=== PATIENT | female | born 1935 | race African-American/Black ===

== ENCOUNTER 2017-04-05 05:07 | Emergency (ER) | payer BC, MEDICARE ==
[2017-04-05] MEDS ORDERED: Metoclopramide HCl 10 MG/2 ML VIAL ONE (06:24)
[2017-04-05 06:34] LABS: #Eosinphils 0.2 thou/uL (0.0-0.7); #Monocytes 0.5 thou/uL (0.11-0.59); #Neutrophils 5.9 thou/uL (1.40-6.50); %Basophils 0.4 % (0.0-1.0); %Eosinophils 1.9 % (0.0-10.0); %Lymphocytes 23.5 % (21.0-51.0); %Monocytes 5.5 % (0.0-10.0); Hematocrit 36.6 % (36.0-47.0); Mean Platelet Volume 8.5 fL (7.4-10.4); Red Blood Cell (RBC) Count 4.09 mill/uL (4.20-5.40); White Blood Cell (WBC) Count 8.5 thou/uL (4.8-10.8)
[2017-04-05 06:59] LABS: ALT (SGPT) 22 U/L (8-55); AST (SGOT) 20 U/L (5-34); Alkaline Phosphatase 104 U/L (40-150); Anion Gap 9 mmol/L (10-20); BUN (Urea Nitrogen) 25 mg/dL (9.8-20.1); Bilirubin, Total 0.3 mg/dL (0.2-1.2); Calc. Creatinine Clearance 0 mL/min (70-130); Calcium 9.1 mg/dL (7.8-10.44); Carbon Dioxide 28 mmol/L (23-31); Chloride 109 mmol/L (98-107); Estimated GFR-MDRD 66; Globulin 3.5 g/dL (2.4-3.5)
--- NOTE | 2017-04-05 07:58 | CT ---
PRELIMINARY REPORT/[facility]/EMERGENCY AFTER HOURS PROCEDURE: EXAM: CT Head Without Intravenous Contrast CLINICAL HISTORY: 81 years old, female; Pain; Headache; Headache not specified; Patient HX: JUNIOR TECHNIQUE: Axial computed tomography images of the head/brain without intravenous contrast. COMPARISON: No relevant prior studies available. FINDINGS: Brain: Some streak artifact. Minimal periventricular white matter hypodensity most commonly associat ed with chronic microvascular ischemic change. No hemorrhage. Ventricles: Normal. Bones/joints: Unremarkable. No acute fracture. Soft tissues: Normal. Sinuses: Unremarkable. Mastoid air cells: Unremarkable. No mastoid effusion. IMPRESSION: No acute findings. Thank you for allowing us to participate in the care of your patient. Dictated and Authenticated by: Steve Mccoy MD 04/05/2017 6:21 AM Central Time ([place] \T\ [place]) FINAL REPORT HEAD CT WITHOUT CONTRAST: Date: 04/05/17 COMPARISON: 04/25/16. HISTORY: Hypertension, headache. FINDINGS: I agree with the preliminary report given by Vidal. Imaged paranasal sinuses/mastoid air cells are we ll aerated, no displaced calvarial fracture is noted, and there is no intracranial hemorrhage, midli ne shift, or mass effect. IMPRESSION: No intracranial hemorrhage seen. POS: [facility]
--- NOTE | 2017-04-09 20:11 | EKG ---
Test Reason : HTN Blood Pressure : / mmHG Vent. Rate : 065 BPM Atrial Rate : 065 BPM P-R Int : 160 ms QRS Dur : 092 ms QT Int : 418 ms P-R-T Axes : 064 -57 049 degrees QTc Int : 434 ms Sinus rhythm with sinus arrhythmia with occasional Premature ventricular complexes Left anterior fascicular block Abnormal ECG Confirmed by GLO ASHRAF D.O. ([id number]), features editor ANTHONY MERCEDES ([id number]) on 04/09/2017 8:11:30 PM Referred By: Confirmed By:GLO ASHRAF D.O.
== END 2017-04-05 07:52 | disposition home or self-care (01) ==
LOC: ERS 05:07
DX: G43.909 Migraine, unspecified, not intractable, without status migrainosus (principal); E78.5 Hyperlipidemia, unspecified; I10 Essential (primary) hypertension; Z79.82 Long term (current) use of aspirin; Z79.899 Other long term (current) drug therapy
CPT/HCPCS: 36415; 70450; 80053; 85025; 93005; 96365; J2765

== ENCOUNTER 2017-04-07 04:31 | Inpatient (IN) | payer MEDICARE, BC ==
[2017-04-07 05:14] LABS: #Eosinphils 0.2 thou/uL (0.0-0.7); #Lymphocytes 2.8 thou/uL (1.20-3.40); #Monocytes 0.4 thou/uL (0.11-0.59); #Neutrophils 4.1 thou/uL (1.40-6.50); %Basophils 0.6 % (0.0-1.0); %Eosinophils 3.1 % (0.0-10.0); %Lymphocytes 37.3 % (21.0-51.0); %Monocytes 4.7 % (0.0-10.0); Red Blood Cell (RBC) Count 3.58 mill/uL (4.20-5.40); White Blood Cell (WBC) Count 7.5 thou/uL (4.8-10.8)
[2017-04-07 05:31] LABS: ALT (SGPT) 23 U/L (8-55); AST (SGOT) 21 U/L (5-34); Alkaline Phosphatase 94 U/L (40-150); Anion Gap 13 mmol/L (10-20); BUN (Urea Nitrogen) 21 mg/dL (9.8-20.1); Bilirubin, Total 0.3 mg/dL (0.2-1.2); Calc. Creatinine Clearance 0 mL/min (70-130); Calcium 8.5 mg/dL (7.8-10.44); Carbon Dioxide 24 mmol/L (23-31); Chloride 108 mmol/L (98-107); Estimated GFR-MDRD 63; Protein, Total 6.2 g/dL (6.0-8.3)
[2017-04-07 05:35] LABS: Troponin I Less than 0.010 ng/mL (< 0.028)
[2017-04-07] MEDS ORDERED: Nitroglycerin 2% Ointment 1 INCH/1 GM Packet TOP SCH (06:00)
[2017-04-07] MEDS ORDERED: Nitroglycerin 2% Ointment 1 INCH/1 GM Packet ONE (06:02)
[2017-04-07] MEDS ORDERED: Mag-Al 1200 mg/1200 mg/30 ML UDCUP PO PRN (06:37)
[2017-04-07] MEDS ORDERED: Ondansetron HCl/PF 4 MG/2 ML Vial IVP PRN (06:37)
--- NOTE | 2017-04-07 06:50 | HP ---
DATE OF ADMISSION: 04/07/2017 ADMITTING PHYSICIAN: Dr. Lawson Weaver PRIMARY CARE PHYSICIAN: Dr. Keith CHIEF COMPLAINT: Chest pain. HISTORY OF PRESENT ILLNESS: The patient is a 81-year-old female with multiple risk factors includin g hypertension and diabetes. She is followed by the security business analyst, Dr. Keith. The patient was actual ly seen not too long ago in clinic and started on isosorbide dinitrate. The patient reports that st arting yesterday she began to experience fatigue and chest pressure and pain when walking as little as 5-10 feet in her home. She tried to lay down to see if that would relieve the symptoms and the s ymptoms did not recede. The patient denies nausea, vomiting and diaphoresis. She was recently seen in the ED for a migraine which has resolved. No other review of systems positive at this time. REVIEW OF SYSTEMS: The following complete review of systems was negative, unless otherwise mentioned in the HPI or below: Constitutional: Weight loss or gain, ability to conduct usual activities. Skin: Rash, itching. Eyes: Double vision, pain. ENT/Mouth: Nose bleeding, neck stiffness, pain, tenderness. Cardiovascular: Palpitations, dyspnea on exertion, orthopnea. Respiratory: Shortness of breath, wheezing, cough, hemoptysis, fever or night sweats. Gastrointestinal: Poor appetite, abdominal pain, heartburn, nausea, vomiting, constipation, or diarrhea. Genitourinary: Urgency, frequency, dysuria, nocturia. Musculoskeletal: Pain, swelling. Neurologic/Psychiatric: Anxiety, depression. Allergy/Immunologic: Skin rash, bleeding tendency. PAST MEDICAL HISTORY: Significant for hypertension, migraine headaches, dyslipidemia, and cervicalg ia. PAST SURGICAL HISTORY: Positive for a hysterectomy, partial thyroidectomy, angiogram 12/2012, spina l surgery. PSYCHIATRIC HISTORY: Negative. SOCIAL HISTORY: Negative for alcohol use, drug use or smoking abuse. FAMILY HISTORY: Reviewed and noncontributory. HOME MEDICATIONS: Amlodipine 5 mg every day, carvedilol 12.5 mg b.i.d., aspirin 81 mg every day, po tassium chloride 20 mEq every day, Lyrica 25 mg daily, lisinopril 10 mg b.i.d., Flexeril 10 mg t.i.d ., Isosorbide 30 mg every day, Fioricet 1 tab q.4h., and clonidine 0.2 mg b.i.d. ALLERGIES: Positive for ACETAMINOPHEN, LATEX, NATURAL RUBBER. PHYSICAL EXAMINATION: VITAL SIGNS: Temperature 98.1, pulse 47, blood pressure 130/53, respirations 20, O2 sat 95% on room air. GENERAL: She is calm, nontoxic, cooperative. HEAD: Normocephalic, atraumatic. EYES: PERRL. Extraocular muscles are intact. ENT: External ear normal, pharynx exam normal, tonsil exam normal, mouth exam normal. Mucous membr anes moist. NECK: Full range of motion. Trachea midline. Supple. RESPIRATORY: Clear to auscultation bilaterally, no rhonchi, no wheezing. CARDIAC: Regular rate and rhythm. Normal S1, S2. ABDOMEN: Obese, nontender, positive bowel sounds. EXTREMITIES: No clubbing, cyanosis or edema. NEUROLOGIC: No focal deficits. Cranial nerves II-XII are grossly intact. She is alert and oriente d x3. LABORATORY/ IMAGES: The patient has had a nuclear medicine stress test 08/2016 which showed an EF o f 78% and no reversible ischemia areas. CBC today shows a white count of 7.5, hemoglobin 10.1, hematocrit 32.0, platelets 181. CMP: Sodium 141, potassium 3.9, chloride 108, carbon dioxide 24, BUN 21, creatinine 1.03, glucose 115, albumin 3.2, AST 21, ALT 23, troponin I less than 0.01. CK-MB 2.4. ASSESSMENT AND PLAN: 1. Chest pain. 2. Hypertension. 3. Diabetes. The patient will be admitted to telemetry obs. We will continue to get serial enzymes. We will als o continue nitrates to attempt to alleviate the patient's chest pain and pressure. We will also con sult her security business analyst, Dr. Keith for further evaluation of her cardiac risk.
[2017-04-07 07:55] VITALS: BMI 31.8
--- NOTE | 2017-04-07 09:08 | RAD ---
CHEST 1 VIEW: Date: 04/07/17 HISTORY: Chest pain. COMPARISON: Chest 1 view dated 11/30/16. FINDINGS: Mild increased pulmonary vascular markings. No pneumothorax. No focal air space consolidation. Heart size similar. IMPRESSION: Mild increased pulmonary vascular markings can be seen with pulmonary venous congestion. POS: [facility]
[2017-04-07 09:43] LABS: Troponin I Less than 0.010 ng/mL (< 0.028)
--- NOTE | 2017-04-07 09:50 | PDOC.EVN ---
Event Note - Event Note Event Note: pt seen and evaluated agree with current management will f/u card rec's
[2017-04-07] MEDS: Enoxaparin Sodium 40 MG/0.4 ML SYRINGE SC SCH (11:53)
[2017-04-07] MEDS: Furosemide 40 MG TAB PO SCH ×2 (11:53→17:22)
[2017-04-07] MEDS: Aspirin 81 mg Enteric Coated Tablet PO SCH (11:53)
[2017-04-07] MEDS: Carvedilol 6.25 MG TAB PO SCH ×3 (11:53→20:16)
[2017-04-07] MEDS: Pregabalin 25 MG CAP PO SCH ×2 (11:53→20:20)
[2017-04-07] MEDS: Topiramate 25 MG TAB PO SCH (11:54)
[2017-04-07 14:34] LABS: Troponin I Less than 0.010 ng/mL (< 0.028)
[2017-04-07] MEDS: traMADol HCl 50 MG TAB PO PRN (15:07)
--- NOTE | 2017-04-07 20:04 | CON ---
DATE OF CONSULTATION: 04/07/2017 PRIMARY CARE PHYSICIAN: Charles Jara M.D. PRIMARY [employer]: Madelin Keith M.D. REFERRING DOCTOR: Lawson Weaver M.D. REASON FOR CARDIOLOGY CONSULTATION: Chest pain. HISTORY OF PRESENT ILLNESS: Ms. Roth is a 81-year-old -Algerian female with significant history of coronary artery disease with a history of myocardial bridge which was approximately 50% obstructing during a cystoscopy and hypertension. Early this morning around 2-3 o'clock in the morning, she had 10-second episode of heaviness in her midsternal area which radiated to the left lateral chest with dizziness. After the episode, she still continued to feel weakness, headache and dizziness, which she describes as her room is spinning. Her headache became worse, so the patient's significant others drove her to [facility] for further evaluation and treatment. She has a significant history of hypertension. Last night, her blood pressure was 170/102 which was before she took her p.m. blood pressure medication. She stated she took all her medications last night including her blood pressure medicine. On the last office visit at Dr. Keith' office, the patient Imdur was increased from 30 to 60 mg once a day and started lisinopril 10 mg twice a day. This morning, she still has light headache and she reports that she has more worsening of headache before blood pressure medicine and her headache improved after she take blood pressure medicine almost every time. During the initial Cardiology consult assessment, she complained of chest pain in her left lateral chest for a few seconds with dizziness, which she describes her head starts spinning with movement with headache. She feels worsening of dizziness and wobbling when she walks to the bathroom and she She went to cardiac catheterization in 2012, which revealed mild coronary artery disease with 30% of lesion in the first diagonal and good myocardial LAD with myocardial bridge which was approximately 50% obstructing during the cysto. Her last echocardiogram was in 02/2017 which shows EF of 63%, mild LVH, moderate mitral valve regurgitation, and mild regurgitation. PAST MEDICAL HISTORY: 1. Hypertension. 2. Hyperlipidemia. 3. 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 4. Chronic edema in her bilateral lower extremities. 5. Right coronary bruit. PAST SURGICAL HISTORY: 1. Hysterectomy. 2. Partial thyroidectomy. FAMILY HISTORY: Significant history of hypertension in her family. Her brother underwent some heart surgery at the age of 24 due to congenital heart rate year heart disease. SOCIAL HISTORY: She is single, but she had a significant others who supports her very well. She is retired. She denies smoking, alcohol or illicit drug abuse. Usually, she does not have caffeine intake. ALLERGIES: She has no known drug allergies. HOME MEDICATIONS: 1. Aspirin 81 mg once a day. 2. Lasix 40 mg once a day. 3. Crestor 20 mg once a day. 4. Cyclobenzaprine 10 mg 3 times a day. 5. Butalbital/acetaminophen/caffeine 50 mg/325 mg/40 mg one to two tablets every 4 hours as needed. 6. Clonidine 0.2 mg 1 tablet twice a day. 7. Potassium chloride 20 mEq once a day. 8. Vitamin E 400 units once a day. 9. Tramadol 50 mg 1-2 tablets twice a day as needed. 10. Hydrochlorothiazide 25 mg once a day. 11. 2.5/0.025 mg 2 tablets 4 times a day as needed. 12. Amlodipine 5 mg once a day. 13. Lyrica 25 mg twice a day. 14. Vitamin B12 1000 mcg once a day. 15. Carvedilol 6.25 twice a day. 16. Isosorbide mononitrate ER 60 mg once a day. 17. Lisinopril 10 mg twice a day. REVIEW OF SYSTEMS: The following complete review of systems was negative, unless otherwise mentioned in the HPI or below. Constitutional: Weight loss or gain, sense of well being, ability to conduct usual activities, exercise tolerance except yesterday for dizziness. Skin: Skin rash, itching, change in hair growth or loss, nail changes, breast lumps, tenderness, swelling, nipple discharge. Eyes: Double vision change, double vision, tearing, blind spots, pain. HEENT: Positive for headache and positive for possible vertigo, but negative to lightheadedness, nose bleeding, cold, obstruction, discharge, dental difficulty, gingival bleeding, denture, neck stiffness, pain, tenderness and mass in the thyroid or other areas. Cardiovascular: Positive for precordial pain, but negative for substernal distress, palpitations, syncope, dyspnea on exertion, orthopnea, nocturnal dyspnea, cyanosis, heart murmur, varicosis, claudication. Respiratory: Shortness of breath, wheezing, stridor, cough, hemoptysis. Gastrointestinal: Poor appetite, dysphagia, indigestion, abdominal pain, heartburn, eructation, nausea, vomiting, tenderness, constipation, diarrhea, abnormal stool or blood in the stool. Genitourinary: Urgency, frequency, dysuria, nocturia, hematuria, polyuria, oliguria, unusual color in urine. Musculoskeletal: She is positive for weakness due to the severity vertigo, but negative for pain, swelling, redness or heat of muscle or joint, limitation of motion, muscular weakness, atrophy, cramps. Neurologic: Convulsion, seizure, paralysis, tremor, incoordination, difficulty with memory of speech. Psychiatric: Emotional problem, anxiety, depression, previous psychiatric care, unusual perceptions, hallucinations. PHYSICAL EXAMINATION: VITAL SIGNS: Blood pressure 142/65, heart rate 53, respiratory rate 16, O2 sat 94%-97% with room air, temperature 98.4. GENERAL: Well-developed, well-nourished without acute distress, but weakness. HEAD: Normocephalic, atraumatic. EYES: Extraocular muscle movement intact. ENT: Oral and nasal mucosa are moist without lesion. NECK: No JVD. Neck is supple and normal range of motion. LUNGS: Clear to auscultation bilaterally. No wheezing, rales or rhonchi noted. CARDIOVASCULAR: Regular rate and rhythm, normal S1, S2. There is no S3, S4, no significant murmurs, hives, thrill, bruits or rubs noted. EXTREMITIES: 2+ in bilateral dorsal pedis, posterior tibial, and popliteal. Cardiac pulses are present. The bruits in the right coronary arteries, but not in the left side. No edema in bilateral lower extremities. ABDOMEN: Soft and nontender or mass to palpate. No, nondistended. Bowel sounds are present. MUSCULOSKELETAL: No calf tenderness, able to move all extremities. SKIN: Warm and dry. No skin rash or palpable effusion or bruits noted. NEUROLOGIC: Patient is alert, oriented x4, awake, normal affect, no focal weakness, but complains generalized weakness. PSYCHIATRIC: Mood and affect are normal. DIAGNOSTIC DATA: A 12 lead EKG in the ER shows sinus rhythm with negative EKG, sinus bell with heart rate 57 with left anterior fascicular block and there are no ST segment change. LABORATORY DATA: WBC 7.5, hemoglobin 10.1, hematocrit 32.0, platelets 181. Sodium 141, potassium 3.9, BUN 21, creatinine is 1.03, calcium 8.5, AST 21, ALT 23, CK-MB 2.4, troponin less than 0.010. Chest x-ray showing mild pulmonary venous congestion. ASSESSMENT AND PLAN: 1. Atypical chest pain. She had one episode of heaviness like chest pain in her mid sternal area for 10 seconds. Since then, she has not had any episode of chest pain or discomfort. The patient's cardiac enzymes are negative. It is possible the patient's chest pain comes secondary to the myocardial bridge which causes chest discomfort/chest pain when patient's blood pressure is high, we like to continue to monitor the patient's condition with the vital sign. At this moment, there are no plans to have further cardiac studies. 2. Dizziness. The patient's symptoms seems like to be vertigo or Meniere disease, maybe midodrine or some medication for vertigo helps to improve her patient's condition. 3. Hypertension, blood pressure is stable with current medication; however, when patient's going to be discharged, we would like to resume all patient's current home medications include Imdur 60 mg once a day and lisinopril 10 mg twice a day. 4. Mild coronary artery disease with 50% on myocardial bridge in the left anterior descending. The patient's condition is stable at this moment, we would like to continue to monitor and with her vital signs, especially the blood pressure 5. Hyperlipidemia. She is on statin medication. We would like to continue cleaning 5. Chronic edema. Her condition is stable, instructed the patient to keep elevated her lower extremities and wear compression stockings and watch fluid and sodium intake and patient is going to have venous Doppler study as an outpatient. Thank you very much for allowing Cardiology Service participate in care of this patient. We will follow along with the patient's care team and make further recommendation as appropriate. RACHEL
[2017-04-07] MEDS: Rosuvastatin 10 MG TAB PO SCH (20:16)
[2017-04-07] MEDS: Amlodipine 5 MG TAB PO SCH (20:16)
[2017-04-07] MEDS ORDERED: hydrALAZINE 20 MG/ML VIAL SLOW IVP PRN (23:35)
[2017-04-08] MEDS: Nitroglycerin 0.4 MG TAB (25 Tab Bottle) SL PRN ×3 (00:58→01:08)
[2017-04-08] MEDS ORDERED: Diltiazem HCl 125 MG, Admixture Fee 1 EACH in Sodium Chloride 0.9% 100 ML SLOW IVP SCH (02:30)
[2017-04-08] MEDS ORDERED: Digoxin 0.5 MG/2 ML AMP SLOW IVP SCH (04:00)
[2017-04-08] MEDS: traMADol HCl 50 MG TAB PO PRN ×3 (04:08→13:23)
--- NOTE | 2017-04-08 05:57 | ADD-CON ---
ADDENDUM DATE OF ADMISSION: 04/07/2017 DATE OF CONSULTATION: 04/07/2017 Of note, this is a 81-year-old female, who was admitted after having some dizziness. She has been h aving dizziness for quite some time. She does have problems with hypertension. She recently was se en in the office. She does have a history also of mild coronary artery disease. She had a 30% to 4 0% stenosis of left anterior descending artery in 2012 by cardiac catheterization. She also had a m yocardial bridge involving the left anterior descending artery. She had a recent stress test approx imately a year ago, which was unremarkable and she was seen in the office. She was noted to have so me elevation of blood pressure just couple of days ago and her isosorbide was increased from 30 to 6 0 mg a day. She again presented to the hospital, complaining of chest discomfort, which sometimes o n the right side, sometimes on the left side it sounds like intramammary discomfort and she says eveline etimes she says she does not notice unless she feels it or pushes on it. She also has a history of migraines and it is possible that when the blood pressure is elevated then she developed some migrai dave or vice versa. At this time, she has remained stable. Cardiac enzymes are unremarkable. Her E KG also did not show any acute changes. I have reviewed the assessment and plan by the nurse martita tovar. We will discuss the case. At this time, I would continue medical management of the patient . Hopefully, once we can adjust her medications, she will be able to be discharged home. We could increase her Coreg if her heart rate tolerates it to decrease the blood pressure; however, her heart rate has been in the 50s. The other option would be to continue to increase the nitrates as tolera shakeel. She is also on clonidine 0.1 mg b.i.d. I would be somewhat leery about increasing this medica tion too much as it may cause her to have more bradycardia, but lisinopril can be increased, obvious ly she is on 10 mg a day and this can be increased up to 20 mg twice a day if necessary. We will co chela to follow her at this time, but overall examination shows that her chest is clear to ausculta tion, cardiovascular exam reveals a regular rate and rhythm, extremities showed no clubbing, cyanosi s or edema. Pedal pulses are present. Neurologically, she is stable. Skin is warm and dry. IMPRESSION: Is as noted by the nurse practitioner, Angelita, and her assessment and plan of the patien t. We will be more than happy to continue to follow the patient with you, but overall appears her p roblems are related to her hypertension.
--- NOTE | 2017-04-08 08:15 | PDOC.CTH ---
<Angelita Pino - Last Filed: 04/08/17 08:11> Cardiology Progress Note - Subjective The pt was seen and examined. No cardiac complaint overnight. Her SBP was elevated up to 200 with Afib with RVR HR 140s from 0047 on 04/08/17. She converted back to SR at 0525 today. The pt was asymptomatic. - Objective Vital Signs Temp Pulse Resp BP BP BP Pulse Ox 04/08/17 07:39 98.0 F 59 L 16 173/73 H 96 04/08/17 05:25 144 H 174/84 H 04/08/17 04:11 71 04/08/17 03:00 96 04/07/17 23:46 71 205/85 H 04/07/17 23:16 98.2 F 65 15 205/85 H 96 04/07/17 20:16 70 204/87 H Weight 174 lb 4 oz 04/07/17 04/08/17 04/09/17 06:59 06:59 06:59 Intake Total 1273.6 Output Total 650 Balance 623.6 - Physical Examination General/Neuro: alert & oriented x3 Neck: no JVD present Lungs: CTA Heart: RRR Abdomen: soft Extremities: other: (No edemas) - Telemetry Telemetry Rhythm: SR 68 - Labs Result Diagrams: 04/07/17 05:01 04/07/17 05:01 Troponin/CKMB CK-MB (CK-2) 2.4 ng/mL (0-6.6) 04/07/17 05:01 Troponin I Less than 0.010 ng/mL (< 0.028) 04/07/17 13:50 - Assessment/Plan 1. HTN - SBP overnight was > 200 with HR up to 140s; Increase Coreg from 6.25mg to 12.5mg BID; may increase her Lisinopril from 10mg BID to 20mg BID; Recheck her Cr level tomorrow 2. Afib with RVR - from 0047 to 0525 today; converted back to SR with Diltiazem IV 5mg/h and Dig IV push. Cont. current medication at this moment 3. Dizziness - Still complains of Vertigo like dizziness; Instructed to call for assistance when she gets up 4. Atypical CP - Resolved 5. Mild CAD - Stable with ASA and BBlocker; cont. monitor 6. Headache - Still complains of cont. headache on top of her head 7. Hyperlipidemia - on Statin medication MAR reviewed Review of Systems - Review of Systems Constitutional: reports: see HPI EENTM: reports: see HPI Respiratory: reports: no symptoms reported Cardiac (ROS): reports: no symptoms reported ABD/GI: reports: no symptoms reported : reports: no symptoms reported Musculoskeletal: reports: see HPI Skin: reports: no symptoms reported Neurological: reports: see HPI Endocrine: reports: no symptoms reported <Luis Enrique Keith - Last Filed: 04/08/17 15:22> Cardiology Progress Note - Objective Vital Signs Temp Pulse Resp BP BP Pulse Ox 04/08/17 11:30 98.1 F 61 16 175/76 H 95 04/08/17 09:01 199/84 H 04/08/17 08:56 199/84 H 04/07/17 04/08/17 04/09/17 06:59 06:59 06:59 Intake Total 240 Balance 240 - Labs Result Diagrams: 04/07/17 05:01 04/07/17 05:01 Troponin/CKMB CK-MB (CK-2) 2.4 ng/mL (0-6.6) 04/07/17 05:01 Troponin I Less than 0.010 ng/mL (< 0.028) 04/07/17 13:50 - Assessment/Plan Pt. seen and eval. by me. I agree with the A/P by the PUBLIC SPEAKER. She was on clonidine routinely at home. This has not been given in the hospital and the BP is elevated again. This may be rebound phenomenon. I suggest we give the clonidine and when the BP decreases then she can be d/c'd. Resume home meds. I will see her in the office in 2-4 weeks. Continue po coreg. Can d/c on po diltiazem.
[2017-04-08] MEDS ORDERED: Carvedilol 6.25 MG TAB PO SCH (08:30)
[2017-04-08] MEDS: Lisinopril 10 MG TAB PO SCH ×2 (08:56→20:25)
[2017-04-08] MEDS: Aspirin 81 mg Enteric Coated Tablet PO SCH (09:01)
[2017-04-08] MEDS: Enoxaparin Sodium 40 MG/0.4 ML SYRINGE SC SCH (09:02)
[2017-04-08] MEDS: Furosemide 40 MG TAB PO SCH (09:02)
[2017-04-08] MEDS: Topiramate 25 MG TAB PO SCH (09:02)
[2017-04-08] MEDS: Pregabalin 25 MG CAP PO SCH ×2 (09:18→20:26)
--- NOTE | 2017-04-08 11:46 | PDOC.PN ---
- Subjective Encounter Start Date: 04/08/17 Encounter Start Time: 11:44 developed afib last night no n/v no f/c - Objective MAR Reviewed: Yes Vital Signs & Weight: Vital Signs (12 hours) Temp Pulse Resp BP BP Pulse Ox 04/08/17 11:30 98.1 F 61 16 175/76 H 95 04/08/17 09:01 199/84 H 04/08/17 08:56 199/84 H I&O: 04/07/17 04/08/17 04/09/17 06:59 06:59 06:59 Intake Total 240 Balance 240 Result Diagrams: 04/07/17 05:01 04/07/17 05:01 Phys Exam - Physical Examination Constitutional: NAD HEENT: PERRLA Neck: no JVD Respiratory: no rales Cardiovascular: no significant murmur, irregular Gastrointestinal: non-tender Musculoskeletal: pulses present Neurological: moves all 4 limbs Psychiatric: A&O x 3 Dx/Plan (1) Hypertensive urgency Code(s): I16.0 - HYPERTENSIVE URGENCY Status: Acute (2) Chest pain Code(s): R07.9 - CHEST PAIN, UNSPECIFIED Status: Acute (3) Afib Code(s): I48.91 - UNSPECIFIED ATRIAL FIBRILLATION Status: Acute (4) Dyslipidemia Code(s): E78.5 - HYPERLIPIDEMIA, UNSPECIFIED Status: Acute - Plan * 1. HTN - SBP overnight was > 200 with HR up to 140s; Increase Coreg from 6.25mg to 12.5mg BID; may increase her Lisinopril from 10mg BID to 20mg BID; Recheck her Cr level tomorrow 2. Afib with RVR - from 0047 to 0525 today; converted back to SR with Diltiazem IV 5mg/h and Dig IV push. Cont. current medication at this moment 3. Dizziness - Still complains of Vertigo like dizziness; Instructed to call for assistance when she gets up 4. Atypical CP - Resolved 5. Mild CAD - Stable with ASA and BBlocker; cont. monitor 6. Headache - Still complains of cont. headache on top of her head 7. Hyperlipidemia - on Statin medication will f/u card rec's
--- NOTE | 2017-04-08 16:09 | EKG ---
Test Reason : STAT Blood Pressure : / mmHG Vent. Rate : 122 BPM Atrial Rate : 122 BPM P-R Int : 000 ms QRS Dur : 108 ms QT Int : 368 ms P-R-T Axes : 000 -77 071 degrees QTc Int : 524 ms Atrial fibrillation with rapid ventricular response Left anterior fascicular block Nonspecific ST abnormality Abnormal ECG When compared with ECG of 07-APR-2017 04:39, (Unconfirmed) Atrial fibrillation has replaced Sinus rhythm Vent. rate has increased BY [address] now depressed in Lateral leads Confirmed by DR. Zain MARTINEZ ([id number]) on 04/08/2017 4:09:17 PM Referred By: DEVORAH MINA Confirmed By:DR. Zain MARTINEZ
[2017-04-08] MEDS: Carvedilol 6.25 MG TAB PO SCH (17:08)
[2017-04-08] MEDS: hydrALAZINE 25 MG TAB PO PRN (17:13)
[2017-04-08] MEDS ORDERED: [UNRECOGNIZED DRUG - REMARK] FS SCH (19:45)
[2017-04-08] MEDS: Rosuvastatin 10 MG TAB PO SCH (20:25)
[2017-04-08] MEDS: Amlodipine 5 MG TAB PO SCH (20:25)
[2017-04-09 06:05] LABS: Anion Gap 18 mmol/L (10-20); BUN (Urea Nitrogen) 19 mg/dL (9.8-20.1); Calc. Creatinine Clearance 52 mL/min (70-130); Calcium 9.4 mg/dL (7.8-10.44); Carbon Dioxide 25 mmol/L (23-31); Chloride 104 mmol/L (98-107); Estimated GFR-MDRD 66
[2017-04-09] MEDS: traMADol HCl 50 MG TAB PO PRN (06:31)
[2017-04-09] MEDS: hydrALAZINE 25 MG TAB PO PRN (06:32)
[2017-04-09] MEDS ORDERED: cloNIDine 0.2 MG TAB PO SCH (09:00)
[2017-04-09] MEDS: Topiramate 25 MG TAB PO SCH (09:12)
[2017-04-09] MEDS: Pregabalin 25 MG CAP PO SCH (09:12)
[2017-04-09] MEDS: Aspirin 81 mg Enteric Coated Tablet PO SCH (09:13)
[2017-04-09] MEDS: Enoxaparin Sodium 40 MG/0.4 ML SYRINGE SC SCH (09:13)
[2017-04-09] MEDS: Carvedilol 6.25 MG TAB PO SCH (09:13)
[2017-04-09] MEDS: Furosemide 40 MG TAB PO SCH (09:13)
[2017-04-09] MEDS: Lisinopril 10 MG TAB PO SCH (09:14)
--- NOTE | 2017-04-09 12:34 | PDOC.PN ---
- Subjective Encounter Start Date: 04/09/17 Encounter Start Time: 12:32 Patient seen and examined. No new complaints. No overnight events - Objective MAR Reviewed: Yes Vital Signs & Weight: Vital Signs (12 hours) Temp Pulse Resp BP BP Pulse Ox 04/09/17 09:45 96 04/09/17 09:14 167/74 H 04/09/17 09:13 167/74 H 04/09/17 07:05 98.3 F 67 18 167/74 H 96 04/09/17 06:32 72 170/72 H 04/09/17 04:00 97.7 F 72 20 170/72 H 92 L 04/09/17 03:51 94 L Weight Weight 156 lb 11.2 oz I&O: 04/08/17 04/09/17 04/10/17 06:59 06:59 05:59 Intake Total 1200 Balance 1200 Result Diagrams: 04/07/17 05:01 04/09/17 05:37 Phys Exam - Physical Examination Constitutional: NAD HEENT: PERRLA Neck: no JVD Respiratory: no rales Cardiovascular: no significant murmur Gastrointestinal: no distention Musculoskeletal: pulses present Neurological: moves all 4 limbs Psychiatric: A&O x 3 Dx/Plan (1) Hypertensive urgency Code(s): I16.0 - HYPERTENSIVE URGENCY Status: Acute (2) Chest pain Code(s): R07.9 - CHEST PAIN, UNSPECIFIED Status: Acute (3) Afib Code(s): I48.91 - UNSPECIFIED ATRIAL FIBRILLATION Status: Acute (4) Dyslipidemia Code(s): E78.5 - HYPERLIPIDEMIA, UNSPECIFIED Status: Acute - Plan * htn controll acceptable. to be optimised by dr heredia as out pt * on eliquis. in sinus rhythm * d/c home
[2017-04-09 15:34] VITALS: BP 169/71; TEMP 98.1
--- NOTE | 2017-04-09 20:12 | EKG ---
Test Reason : Blood Pressure : / mmHG Vent. Rate : 057 BPM Atrial Rate : 057 BPM P-R Int : 158 ms QRS Dur : 092 ms QT Int : 436 ms P-R-T Axes : 067 -60 049 degrees QTc Int : 424 ms Sinus bradycardia Left anterior fascicular block Abnormal ECG Confirmed by GLO ASHRAF D.O. ([id number]), subeditor ANTHONY MERCEDES ([id number]) on 04/09/2017 8:12:34 PM Referred By: Confirmed By:GLO ASHRAF D.O.
[2017-04-09] MEDS ORDERED: Apixaban 5 MG TAB PO SCH (21:00)
--- NOTE | 2017-04-09 23:21 | DIS ---
DATE OF ADMISSION: 04/08/2017 DATE OF DISCHARGE: 04/09/2017 DISCHARGE DIAGNOSES: 1. Atrial fibrillation, right now in sinus, rate controlled and Eliquis 5 mg p.o. b.i.d. for antico agulation. Chest pain resolved. Outpatient followup with Dr. Keith. 2. Hypertension, stable. 3. Diabetes, stable. 4. Migraine headaches, stable. 5. Hyperlipidemia, stable. 6. Cervicalgia, stable. DISCHARGE MEDICATIONS: The patient's discharge medications include Norvasc 5 mg p.o. at bedtime, El iquis 5 mg p.o. b.i.d., Coreg 12.5 p.o. b.i.d., Lasix 40 mg p.o. daily, hydrochlorothiazide 25 p.o. daily, isosorbide 60 mg p.o. daily, lisinopril 10 mg p.o. b.i.d. and continuation of all other medic ations from the home except for the dose of clonidine has been changed to 0.2 mg p.o. daily. The patient's consultants on the case were Dr. Keith. BRIEF HOSPITAL COURSE: This is a 81-year-old pleasant lady who came into the hospital with chest pa in. Dr. Keith evaluated the patient and tred to treat her medically because of uncontrolled high blo od pressure. She optimize the medications for the blood pressure. The patient's course was complic ated with a run of atrial fibrillation for which she was treated with IV Cardizem and 1 dose of IV d igoxin, she converted to sinus rhythm. Right now, she is in sinus rhythm and has been anticoagulate d with Eliquis. She is right now medically stable to be discharged and to be followed up with Dr. Ignacio stafford in 2 weeks. The patient is asked to come back to the emergency room in case symptoms recur. Total time for this discharge took 35 minutes.
== END 2017-04-09 13:45 | disposition home or self-care (01) | DRG 310 ==
LOC: ERS 04:31 → 2SW 06:32 → OBSVTOIN 04-08 08:25 → 2NO 04-08 11:15
PROVIDERS: ADMIT Internal Medicine Addiction Medicine; ATTEND Internal Medicine Addiction Medicine
DX: I48.91 Unspecified atrial fibrillation (principal); E11.9 Type 2 diabetes mellitus without complications; I10 Essential (primary) hypertension; Z79.82 Long term (current) use of aspirin; G43.909 Migraine, unspecified, not intractable, without status migrainosus; M54.2 Cervicalgia; I25.10 Atherosclerotic heart disease of native coronary artery without angina pectoris; E78.5 Hyperlipidemia, unspecified; I16.0 Hypertensive urgency
CPT/HCPCS: 36415; 70450; 71010; 80048; 80053; 82553; 84484; 85025; 93005; 93010; 94760; 96365; A4216; J0360; J1160; J1650; J2765; J7050

== ENCOUNTER 2017-04-20 03:30 | Emergency (ER) | payer MEDICARE, BC ==
[2017-04-20 04:24] LABS: Bilirubin Negative (Negative); Blood, Urine Negative (Negative); Glucose, Urine (Dipstick) Negative (Negative); Ketone, Urine Negative (Negative); Nitrite Negative (Negative); Protein, Urine (Dipstick) Negative (Neg-Trace); Urobilinogen 0.2 mg/dL (0.2-1.0)
[2017-04-20 04:44] LABS: #Eosinphils 0.2 thou/uL (0.0-0.7); #Lymphocytes 2.3 thou/uL (1.20-3.40); #Monocytes 0.3 thou/uL (0.11-0.59); #Neutrophils 2.7 thou/uL (1.40-6.50); %Basophils 0.4 % (0.0-1.0); %Eosinophils 3.5 % (0.0-10.0); %Lymphocytes 41.6 % (21.0-51.0); %Monocytes 6.2 % (0.0-10.0); Hematocrit 34.5 % (36.0-47.0); Mean Platelet Volume 8.6 fL (7.4-10.4); Red Blood Cell (RBC) Count 3.82 mill/uL (4.20-5.40); White Blood Cell (WBC) Count 5.5 thou/uL (4.8-10.8)
[2017-04-20 05:04] LABS: ALT (SGPT) 37 U/L (8-55); AST (SGOT) 25 U/L (5-34); Alkaline Phosphatase 106 U/L (40-150); Anion Gap 10 mmol/L (10-20); BUN (Urea Nitrogen) 23 mg/dL (9.8-20.1); Bilirubin, Total 0.2 mg/dL (0.2-1.2); Calc. Creatinine Clearance 0 mL/min (70-130); Calcium 8.7 mg/dL (7.8-10.44); Carbon Dioxide 25 mmol/L (23-31); Chloride 107 mmol/L (98-107); Estimated GFR-MDRD 67; Globulin 3.2 g/dL (2.4-3.5); Protein, Total 6.7 g/dL (6.0-8.3)
[2017-04-20 05:10] LABS: Troponin I Less than 0.010 ng/mL (< 0.028)
== END 2017-04-20 05:31 | disposition home or self-care (01) ==
LOC: ERS 03:30
DX: R51 Headache (principal); E78.5 Hyperlipidemia, unspecified; G43.909 Migraine, unspecified, not intractable, without status migrainosus; Z79.899 Other long term (current) drug therapy; Z79.82 Long term (current) use of aspirin
CPT/HCPCS: 36415; 36416; 80053; 81003; 82553; 83880; 84484; 85025; 93005

== ENCOUNTER 2017-04-23 18:50 | Emergency (ER) | payer MEDICARE, BC ==
[2017-04-23] MEDS ORDERED: Acetaminophen 500 MG TAB ONE (21:16)
[2017-04-23] MEDS ORDERED: Metoclopramide HCl 10 MG/2 ML VIAL ONE (21:16)
[2017-04-23] MEDS ORDERED: diphenhydrAMINE 50 MG/ML VIAL ONE (21:16)
[2017-04-23 21:42] LABS: #Eosinphils 0.1 thou/uL (0.0-0.7); #Lymphocytes 2.1 thou/uL (1.20-3.40); #Monocytes 0.4 thou/uL (0.11-0.59); #Neutrophils 5.3 thou/uL (1.40-6.50); %Basophils 0.3 % (0.0-1.0); %Eosinophils 1.2 % (0.0-10.0); %Monocytes 5.6 % (0.0-10.0); Hematocrit 38.9 % (36.0-47.0); Mean Platelet Volume 8.4 fL (7.4-10.4); Red Blood Cell (RBC) Count 4.27 mill/uL (4.20-5.40)
--- NOTE | 2017-04-23 21:58 | CT ---
CT BRAIN WITHOUT CONTRAST 04/23/17 HISTORY: Headache. COMPARISON: CT brain 04/05/17. FINDINGS: No acute territorial infarct or hemorrhage. No midline shift or mass effect. Ventricular size and ext ra-axial CSF spaces are normal. Mild prominence of the ventricular system. Mild atrophy. IMPRESSION: No acute intracranial abnormality. No significant change. POS: [facility]
[2017-04-23 22:03] LABS: ALT (SGPT) 23 U/L (8-55); AST (SGOT) 20 U/L (5-34); Alkaline Phosphatase 113 U/L (40-150); Anion Gap 14 mmol/L (10-20); BUN (Urea Nitrogen) 16 mg/dL (9.8-20.1); Bilirubin, Total 0.3 mg/dL (0.2-1.2); Calc. Creatinine Clearance 0 mL/min (70-130); Calcium 9.7 mg/dL (7.8-10.44); Carbon Dioxide 25 mmol/L (23-31); Chloride 103 mmol/L (98-107); Estimated GFR-MDRD 75; Globulin 3.8 g/dL (2.4-3.5); Magnesium 2.3 mg/dL (1.6-2.6); Protein, Total 7.8 g/dL (6.0-8.3)
[2017-04-23] MEDS ORDERED: Labetalol HCl 100 MG/20 ML VIAL ONE (22:04)
[2017-04-23 22:05] LABS: Troponin I Less than 0.010 ng/mL (< 0.028)
== END 2017-04-24 00:02 | disposition home or self-care (01) ==
LOC: ERS 18:50
DX: R51 Headache (principal); G89.29 Other chronic pain; I10 Essential (primary) hypertension; G43.909 Migraine, unspecified, not intractable, without status migrainosus; E78.5 Hyperlipidemia, unspecified; Z79.899 Other long term (current) drug therapy; Z79.82 Long term (current) use of aspirin
CPT/HCPCS: 70450; 80053; 82553; 83735; 84484; 85025; 85652; 96365; 96366; 96375; J1200; J2765

== ENCOUNTER 2021-09-26 21:31 | Inpatient (IN) | payer MEDICARE ==
[2021-09-27] MEDS ORDERED: Ondansetron PF 4 MG/2 ML Vial IVP PRN (01:08)
[2021-09-27] MEDS ORDERED: Ondansetron ODT 4 MG TAB PO PRN (01:08)
[2021-09-27] MEDS ORDERED: hydrALAZINE 20 MG/ML VIAL SLOW IVP PRN ×2 (01:21→06:13)
[2021-09-27] MEDS ORDERED: Electrolyte Replacement Protocol 1 EACH FS SCH (01:30)
[2021-09-27 02:00] LABS: #Eosinphils 0.1 thou/uL (0.0-0.7); #Lymphocytes 1.5 thou/uL (1.20-3.40); #Monocytes 0.5 thou/uL (0.11-0.59); #Neutrophils 6.1 thou/uL (1.40-6.50); %Basophils 0.2 % (0.0-1.0); %Eosinophils 0.7 % (0.0-10.0); %Lymphocytes 18.4 % (21.0-51.0); %Monocytes 5.6 % (0.0-10.0); Hemoglobin 11.7 g/dL (12.0-16.0); Mean Corpuscular HGB CONC 31.8 g/dL (32.0-36.0); Mean Corpuscular Hemoglobin 26.8 pg (27.0-31.0); Mean Corpuscular Volume 84.3 fL (78.0-98.0); Mean Platelet Volume 8.9 fL (7.4-10.4); Platelet Count 223 thou/uL (130-400); RBC Distribution Width 15.7 % (11.5-14.5); Red Blood Cell (RBC) Count 4.37 mill/uL (4.20-5.40); White Blood Cell (WBC) Count 8.1 thou/uL (4.8-10.8)
[2021-09-27 02:32] LABS: Anion Gap 17 mmol/L (10-20); BUN (Urea Nitrogen) 22 mg/dL (9.8-20.1); Calc. Creatinine Clearance 0 mL/min (70-130); Calcium 9.2 mg/dL (7.8-10.44); Carbon Dioxide 26 mmol/L (23-31); Chloride 102 mmol/L (98-107); Glucose 134 mg/dL (83-110); Magnesium 1.8 mg/dL (1.6-2.6); Potassium 3.8 mmol/L (3.5-5.1); Sodium 141 mmol/L (136-145)
[2021-09-27] MEDS ORDERED: Magnesium 2 GM/50 ML(in water) 2 GM in Premix Bag 1 BAG IVPB SCH (04:00)
[2021-09-27] MEDS: Labetalol HCl 100 MG/20 ML VIAL SLOW IVP PRN ×4 (04:59→22:02)
[2021-09-27] MEDS: Furosemide 40 MG/4 ML VIAL SLOW IVP SCH (09:54)
[2021-09-27] MEDS ORDERED: Electrolyte Replacement Protocol FS PRN (13:45)
[2021-09-27] MEDS: NIFEdipine XL 30 MG TAB PO SCH ×2 (15:22→16:52)
[2021-09-27] MEDS ORDERED: Potassium Chloride 40 MEQ in Premix Bag 1 BAG IVPB SCH (16:00)
[2021-09-27] MEDS ORDERED: NIFEdipine 10 MG CAP PO SCH (16:00)
[2021-09-27] MEDS ORDERED: Furosemide 40 MG/4 ML VIAL SLOW IVP SCH (16:00)
[2021-09-27] MEDS ORDERED: Isosorbide Mononitrate 20 MG TAB PO SCH (16:00)
[2021-09-27] MEDS ORDERED: Potassium Bicarbonate/Cit Ac 20 MEQ TAB PO SCH (16:15)
[2021-09-27] MEDS ORDERED: Amlodipine 10 MG TAB PO SCH (16:45)
[2021-09-27] MEDS ORDERED: Carvedilol 6.25 MG TAB PO SCH (17:00)
[2021-09-27] MEDS ORDERED: Potassium Chloride 20 MEQ TAB PO SCH (17:00)
[2021-09-27] MEDS: Donepezil HCl 10 MG TAB PO SCH (21:55)
[2021-09-27] MEDS: Gabapentin 300 MG CAP PO SCH (21:55)
[2021-09-27] MEDS: Carvedilol 6.25 MG TAB PO SCH (21:55)
[2021-09-27] MEDS: Rosuvastatin 20 MG TAB PO SCH (21:55)
[2021-09-27] MEDS: Enoxaparin Sodium 80 MG/0.8 ML SYRINGE SC SCH (21:56)
[2021-09-28 05:34] LABS: Anion Gap 12 mmol/L (10-20); BUN (Urea Nitrogen) 17 mg/dL (9.8-20.1); Calc. Creatinine Clearance 50 mL/min (70-130); Calcium 8.5 mg/dL (7.8-10.44); Carbon Dioxide 32 mmol/L (23-31); Chloride 100 mmol/L (98-107); Glucose 115 mg/dL (83-110); Magnesium 1.9 mg/dL (1.6-2.6); Potassium 3.2 mmol/L (3.5-5.1); Sodium 141 mmol/L (136-145)
[2021-09-28] MEDS ORDERED: Potassium Chloride 20 MEQ TAB PO SCH (05:45)
[2021-09-28] MEDS ORDERED: Magnesium 2 GM/50 ML(in water) 2 GM in Premix Bag 1 BAG IVPB SCH (06:00)
[2021-09-28] MEDS ORDERED: NIFEdipine XL 30 MG TAB PO SCH (09:00)
[2021-09-28] MEDS: Furosemide 40 MG/4 ML VIAL SLOW IVP SCH (09:24)
[2021-09-28] MEDS: Amlodipine 10 MG TAB PO SCH (09:24)
[2021-09-28] MEDS: Gabapentin 300 MG CAP PO SCH ×2 (09:24→21:04)
[2021-09-28] MEDS: Cholecalciferol 1,000 UNITS (25 MCG) TAB PO SCH (09:25)
[2021-09-28] MEDS: Aspirin 81 mg Enteric Coated Tablet PO SCH (09:25)
[2021-09-28] MEDS: Carvedilol 6.25 MG TAB PO SCH (09:25)
[2021-09-28] MEDS: Enoxaparin Sodium 80 MG/0.8 ML SYRINGE SC SCH ×2 (09:26→21:13)
[2021-09-28] MEDS: Isosorbide Mononitrate 20 MG TAB PO SCH (09:26)
[2021-09-28 12:27] LABS: SARS-CoV-2 PCR by NAA Not Detected (NotDetected)
[2021-09-28] MEDS ORDERED: Carvedilol 25 MG TAB PO SCH (17:30)
[2021-09-28] MEDS: Donepezil HCl 10 MG TAB PO SCH (21:04)
[2021-09-28] MEDS: Rosuvastatin 20 MG TAB PO SCH (21:04)
[2021-09-29 06:14] LABS: ALT (SGPT) 13 U/L (8-55); AST (SGOT) 21 U/L (5-34); Albumin 3.1 g/dL (3.4-4.8); Alkaline Phosphatase 68 U/L (40-110); Bilirubin, Direct 0.4 mg/dL (0.1-0.3); Bilirubin, Total 0.7 mg/dL (0.2-1.2); Magnesium 1.9 mg/dL (1.6-2.6); Protein, Total 6.7 g/dL (5.8-8.1)
[2021-09-29 06:16] LABS: Anion Gap 12 mmol/L (10-20); BUN (Urea Nitrogen) 13 mg/dL (9.8-20.1); Calc. Creatinine Clearance 51 mL/min (70-130); Calcium 8.7 mg/dL (7.8-10.44); Carbon Dioxide 24 mmol/L (23-31); Chloride 104 mmol/L (98-107); Glucose 140 mg/dL (83-110); Potassium 3.4 mmol/L (3.5-5.1); Sodium 137 mmol/L (136-145)
[2021-09-29] MEDS ORDERED: Magnesium 2 GM/50 ML(in water) 2 GM in Premix Bag 1 BAG IVPB SCH (06:45)
[2021-09-29] MEDS ORDERED: Potassium Chloride 20 MEQ TAB PO SCH (06:45)
[2021-09-29] MEDS: Carvedilol 25 MG TAB PO SCH ×2 (09:52→17:06)
[2021-09-29] MEDS: Amlodipine 10 MG TAB PO SCH (09:52)
[2021-09-29] MEDS: Aspirin 81 mg Enteric Coated Tablet PO SCH (09:52)
[2021-09-29] MEDS: Cholecalciferol 1,000 UNITS (25 MCG) TAB PO SCH (09:52)
[2021-09-29] MEDS: Furosemide 40 MG/4 ML VIAL SLOW IVP SCH (09:55)
[2021-09-29] MEDS: Isosorbide Mononitrate 20 MG TAB PO SCH (09:55)
[2021-09-29] MEDS: Enoxaparin Sodium 80 MG/0.8 ML SYRINGE SC SCH ×2 (09:56→20:17)
[2021-09-29] MEDS ORDERED: Citalopram 10 MG TAB PO SCH (17:00)
[2021-09-29] MEDS: Rosuvastatin 20 MG TAB PO SCH (20:17)
[2021-09-29] MEDS: Donepezil HCl 5 MG TAB PO SCH (20:17)
[2021-09-30 05:18] VITALS: BMI 28.5
[2021-09-30 06:31] LABS: Anion Gap 16 mmol/L (10-20); Calcium 8.6 mg/dL (7.8-10.44); Carbon Dioxide 17 mmol/L (23-31); Chloride 110 mmol/L (98-107); Potassium 4.7 mmol/L (3.5-5.1); Sodium 138 mmol/L (136-145)
[2021-09-30] MEDS: Carvedilol 25 MG TAB PO SCH ×2 (08:29→17:39)
[2021-09-30] MEDS: Citalopram 10 MG TAB PO SCH (08:29)
[2021-09-30] MEDS: Amlodipine 10 MG TAB PO SCH (08:29)
[2021-09-30] MEDS: Enoxaparin Sodium 80 MG/0.8 ML SYRINGE SC SCH (08:29)
[2021-09-30] MEDS: Aspirin 81 mg Enteric Coated Tablet PO SCH (08:29)
[2021-09-30] MEDS: Cholecalciferol 1,000 UNITS (25 MCG) TAB PO SCH (08:29)
[2021-09-30] MEDS: Furosemide 40 MG/4 ML VIAL SLOW IVP SCH (08:30)
[2021-09-30] MEDS: Isosorbide Mononitrate 20 MG TAB PO SCH (08:31)
[2021-09-30 09:31] LABS: Glucose 143 mg/dL (83-110)
[2021-09-30 09:34] LABS: Calc. Creatinine Clearance 48 mL/min (70-130)
[2021-09-30 09:35] LABS: BUN (Urea Nitrogen) 13 mg/dL (9.8-20.1)
[2021-09-30] MEDS ORDERED: Lorazepam 0.5 MG TAB PO PRN (16:37)
[2021-09-30] MEDS ORDERED: Citalopram 10 MG TAB PO SCH (16:45)
[2021-09-30] MEDS: Donepezil HCl 5 MG TAB PO SCH (21:01)
[2021-09-30] MEDS: Rosuvastatin 20 MG TAB PO SCH (21:01)
[2021-10-01 05:47] LABS: Anion Gap 16 mmol/L (10-20); BUN (Urea Nitrogen) 21 mg/dL (9.8-20.1); Calc. Creatinine Clearance 44 mL/min (70-130); Calcium 8.7 mg/dL (7.8-10.44); Carbon Dioxide 23 mmol/L (23-31); Chloride 104 mmol/L (98-107); Glucose 132 mg/dL (83-110); Potassium 3.4 mmol/L (3.5-5.1); Sodium 140 mmol/L (136-145)
[2021-10-01] MEDS ORDERED: Potassium Chloride 20 MEQ TAB PO SCH (07:00)
[2021-10-01] MEDS: Aspirin 81 mg Enteric Coated Tablet PO SCH (08:41)
[2021-10-01] MEDS: Carvedilol 25 MG TAB PO SCH ×2 (08:41→18:20)
[2021-10-01] MEDS: Amlodipine 10 MG TAB PO SCH (08:42)
[2021-10-01] MEDS: Furosemide 40 MG/4 ML VIAL SLOW IVP SCH (08:42)
[2021-10-01] MEDS: Citalopram 10 MG TAB PO SCH (08:42)
[2021-10-01] MEDS: Isosorbide Mononitrate 20 MG TAB PO SCH (08:42)
[2021-10-01] MEDS: Cholecalciferol 1,000 UNITS (25 MCG) TAB PO SCH (08:42)
[2021-10-01] MEDS ORDERED: Diltiazem HCl SR 60 mg Capsule PO SCH (09:00)
[2021-10-01 16:55] VITALS: BP 92/59; TEMP 97.7
== END 2021-10-01 19:30 | disposition home or self-care (01) | DRG 291 ==
LOC: NEURO 21:31
PROVIDERS: ADMIT Internal Medicine; ATTEND Internal Medicine
DX: I13.0 Hypertensive heart and chronic kidney disease with heart failure and stage 1 through stage 4 chronic kidney disease, or unspecified chronic kidney disease (principal); I50.33 Acute on chronic diastolic (congestive) heart failure; N17.9 Acute kidney failure, unspecified; Z20.822 Contact with and (suspected) exposure to COVID-19; G43.909 Migraine, unspecified, not intractable, without status migrainosus; E78.5 Hyperlipidemia, unspecified; I25.10 Atherosclerotic heart disease of native coronary artery without angina pectoris; N18.30 Chronic kidney disease, stage 3 unspecified; I48.91 Unspecified atrial fibrillation; I16.0 Hypertensive urgency; F03.90 Unspecified dementia, unspecified severity, without behavioral disturbance, psychotic disturbance, mood disturbance, and anxiety; Z88.8 Allergy status to other drugs, medicaments and biological substances; Z91.040 Latex allergy status; Z79.82 Long term (current) use of aspirin; Z79.899 Other long term (current) drug therapy; Z78.1 Physical restraint status
CPT/HCPCS: 36415; 80048; 80076; 83735; 85025; 93306; 93798; J1650; J1940; J3475; U0003; U0005

== ENCOUNTER 2025-02-09 22:18 | Inpatient (IN) | payer MEDICARE, OTHER ==
[2025-02-09 23:30] LABS: #Basophils 0.03 10x3/uL (0.0-0.2); #Eosinophils 0.15 10x3/uL (0.0-0.7); #Monocytes 0.58 10x3/uL (0.11-0.59); #Neutrophils 3.19 10x3/uL (1.40-6.50); %Basophils 0.4 % (0.0-1.0); %Eosinophils 2.2 % (0.0-10.0); %Lymphocytes 42.0 % (21.0-51.0); %Monocytes 8.5 % (0.0-10.0); %Neutrophils 46.6 % (42.0-75.0); Hematocrit 39.4 % (36.0-47.0); Hemoglobin 11.2 g/dL (12.0-16.0); Mean Corpuscular Hemoglobin 22.4 pg (27.0-31.0); Mean Corpuscular Volume 78.6 fL (78.0-98.0); Platelet Count 173 10x3/uL (130-400); Red Blood Cell (RBC) Count 5.01 mill/uL (4.20-5.40); White Blood Cell (WBC) Count 6.85 10x3/uL (4.8-10.8)
[2025-02-09 23:45] LABS: ALT (SGPT) 8 U/L (Less than 34); AST (SGOT) 24 U/L (11-34); Albumin 2.7 g/dL (3.1-4.5); Alkaline Phosphatase 62 U/L (40-110); Anion Gap 14 mmol/L (10-20); BUN (Urea Nitrogen) 41 mg/dL (9.8-20.1); Bilirubin, Total 0.1 mg/dL (0.3-1.2); Calc. Creatinine Clearance 0 mL/min (70-130); Calcium 8.7 mg/dL (7.8-10.44); Carbon Dioxide 25 mmol/L (23-31); Chloride 115 mmol/L (98-107); Globulin 4.7 g/dL (2.4-3.5); Glucose 123 mg/dL (83-110); Potassium 3.8 mmol/L (3.5-5.1); Sodium 150 mmol/L (136-145)
[2025-02-10 00:57] LABS: Bacteria/HPF None Seen HPF (None Seen); CAUTI Indications for Culture Alt mental st,lethar; Glucose, Urine (Dipstick) Normal (Negative); Leukocyte Negative Leu/uL (Negative); Protein, Urine (Dipstick) Negative (Neg-Trace); RBC/HPF 0-3 HPF (0-3); Specific Gravity, Urine 1.013 (1.002-1.036); WBC/HPF 0-3 HPF (0-3)
[2025-02-10 00:59] LABS: Urine Culture Reflex No No
[2025-02-10] MEDS ORDERED: Ondansetron PF 4 MG/2 ML Vial IVP PRN (03:31)
[2025-02-10] MEDS ORDERED: cefTRIAXone (ROCEPHIN) 2 GM VIAL ONE (08:01)
[2025-02-10] MEDS ORDERED: metroNIDAZOLE 500 MG (100 mL) BAG ONE (08:01)
[2025-02-10] MEDS: cefTRIAXone\\ROCEPHIN 2 GM in Sodium Chloride 0.9% 100 ML IVPB SCH (08:19)
[2025-02-10] MEDS ORDERED: Heparin 5,000 UNITS/ML VIAL SC SCH (09:00)
[2025-02-10 10:46] VITALS: BMI 24.3
[2025-02-10] MEDS: Isosorbide Mononitrate 60 MG ER.TAB PO SCH (10:55)
[2025-02-10] MEDS: Enoxaparin 30 MG (0.3 mL) SYRINGE SC SCH (11:34)
[2025-02-10 14:18] LABS: Anion Gap 16 mmol/L (10-20); BUN (Urea Nitrogen) 37 mg/dL (9.8-20.1); Calc. Creatinine Clearance 26 mL/min (70-130); Calcium 8.9 mg/dL (7.8-10.44); Carbon Dioxide 24 mmol/L (23-31); Chloride 118 mmol/L (98-107); Glucose 127 mg/dL (83-110); Potassium 4.1 mmol/L (3.5-5.1); Sodium 154 mmol/L (136-145)
[2025-02-10] MEDS: PNEUMOC 20-VAL CONJ-DIP CRM/PF 0.5 ML SYRINGE IM ONE (14:50)
[2025-02-10] MEDS: Carvedilol 25 MG TAB PO SCH (16:35)
[2025-02-11 06:25] LABS: #Basophils Less than 0.03 10x3/uL (0.0-0.2); #Eosinophils 0.04 10x3/uL (0.0-0.7); #Monocytes 0.45 10x3/uL (0.11-0.59); #Neutrophils 2.98 10x3/uL (1.40-6.50); %Basophils 0.4 % (0.0-1.0); %Eosinophils 0.7 % (0.0-10.0); %Lymphocytes 37.0 % (21.0-51.0); %Monocytes 8.1 % (0.0-10.0); %Neutrophils 53.4 % (42.0-75.0); Hematocrit 44.1 % (36.0-47.0); Hemoglobin 12.6 g/dL (12.0-16.0); Mean Corpuscular Hemoglobin 22.4 pg (27.0-31.0); Mean Corpuscular Volume 78.5 fL (78.0-98.0); Platelet Count 131 10x3/uL (130-400); Red Blood Cell (RBC) Count 5.62 mill/uL (4.20-5.40); White Blood Cell (WBC) Count 5.57 10x3/uL (4.8-10.8)
[2025-02-11] MEDS: hydrALAZINE 20 MG/ML VIAL SLOW IVP PRN (06:49)
[2025-02-11 06:55] LABS: Anion Gap 14 mmol/L (10-20); BUN (Urea Nitrogen) 26 mg/dL (9.8-20.1); Calc. Creatinine Clearance 41 mL/min (70-130); Calcium 8.8 mg/dL (7.8-10.44); Carbon Dioxide 24 mmol/L (23-31); Chloride 110 mmol/L (98-107); Glucose 125 mg/dL (83-110); Potassium 3.7 mmol/L (3.5-5.1); Sodium 144 mmol/L (136-145)
[2025-02-11 07:48] LABS: Magnesium 2.0 mg/dL (1.6-2.6)
[2025-02-11] MEDS: Carvedilol 25 MG TAB PO SCH (09:16)
[2025-02-11 14:04] LABS: Campy jejuni + coli by PCR Negative (Negative); STEC Shiga Toxin 1+2 Negative (Negative); Salmonella spp. by PCR Negative (Negative); Shigella spp + EIEC by PCR Negative (Negative)
[2025-02-11 14:20] VITALS: BMI 24.3
[2025-02-11 16:06] LABS: Anion Gap 14 mmol/L (10-20); BUN (Urea Nitrogen) 24 mg/dL (9.8-20.1); Calc. Creatinine Clearance 36 mL/min (70-130); Calcium 8.5 mg/dL (7.8-10.44); Carbon Dioxide 21 mmol/L (23-31); Chloride 111 mmol/L (98-107); Glucose 126 mg/dL (83-110); Potassium 3.6 mmol/L (3.5-5.1); Sodium 142 mmol/L (136-145)
[2025-02-12 05:04] LABS: Anion Gap 9 mmol/L (10-20); BUN (Urea Nitrogen) 21 mg/dL (9.8-20.1); Calc. Creatinine Clearance 38 mL/min (70-130); Calcium 8.6 mg/dL (7.8-10.44); Carbon Dioxide 26 mmol/L (23-31); Chloride 110 mmol/L (98-107); Glucose 105 mg/dL (83-110); Potassium 3.3 mmol/L (3.5-5.1); Sodium 142 mmol/L (136-145)
[2025-02-12] MEDS: Enoxaparin 40 MG (0.4 mL) SYRINGE SC SCH (10:00)
[2025-02-12 11:12] VITALS: BP 125/82; TEMP 97.7
[2025-02-12] MEDS: D5 LR w/20 mEq KCL 1,000 ML IV SCH (14:45)
== END 2025-02-12 16:22 | disposition hospice, home (50) | DRG 682 ==
LOC: ERS 22:18 → ERHOLD 02-10 03:22 → OBSVTOIN 02-10 03:41 → SURG A 02-10 08:44
PROVIDERS: ADMIT Internal Medicine; ATTEND Internal Medicine
DX: N17.9 Acute kidney failure, unspecified (principal); G93.41 Metabolic encephalopathy; E87.1 Hypo-osmolality and hyponatremia; I50.32 Chronic diastolic (congestive) heart failure; J96.11 Chronic respiratory failure with hypoxia; Z51.5 Encounter for palliative care; Z66 Do not resuscitate; I11.0 Hypertensive heart disease with heart failure; E78.5 Hyperlipidemia, unspecified; F03.90 Unspecified dementia, unspecified severity, without behavioral disturbance, psychotic disturbance, mood disturbance, and anxiety; A08.4 Viral intestinal infection, unspecified; N32.89 Other specified disorders of bladder; E87.6 Hypokalemia; K57.30 Diverticulosis of large intestine without perforation or abscess without bleeding; Z99.81 Dependence on supplemental oxygen; Z88.8 Allergy status to other drugs, medicaments and biological substances; Z91.040 Latex allergy status; Z79.899 Other long term (current) drug therapy; Z90.710 Acquired absence of both cervix and uterus; Z98.890 Other specified postprocedural states
CPT/HCPCS: 36415; 36416; 70450; 71045; 74176; 80048; 80053; 81001; 83735; 83880; 84100; 84484; 85025; 87324; 87449; 87505; 93005; 94760; 97139; J0360; J0696; J1650; J7042; J7070